=== PATIENT | female | born 2000 | race Caucasian/White ===

== ENCOUNTER 2023-11-12 09:32 | Emergency (ER) | payer OTHER, SELFPAY ==
[2023-11-12 09:32] VITALS: BMI 19.8
[2023-11-12 09:40] VITALS: BP 114/73
[2023-11-12 10:22] LABS: Urine Albumin Trace (Neg - Trace); Urine Bilirubin Negative (Negative); Urine Character Clear (Clear); Urine Color Yellow; Urine Glucose Negative (Negative); Urine Ketone Negative (Negative); Urine Leukocyte Trace (Negative); Urine Nitrite Negative (Negative); Urine Occult Blood 4+ (Negative); Urine Urobilinogen Negative (Neg - 1+)
[2023-11-12 10:29] LABS: Urine Mucus Moderate
[2023-11-12 10:31] LABS: Urine Bacteria Moderate (Negative); Urine Red Blood Cell 16-20 /HPF (0-2); Urine White Cell 0-2 /HPF (0-5)
[2023-11-12 10:37] LABS: HCG, Urine Qualitative Screen Negative
--- NOTE | 2023-11-12 10:52 | ED.GENMED ---
History of Present Illness
General
Chief Complaint: Abdominal Symptoms
Source: patient
Exam Limitations: none
Time Seen by Provider: 11/12/23 09:52
Nursing documentation reviewed up to this point in time: agreed with
Travel History
Have you had any contact with someone who has COVID-19?: No
Do you have any symptoms of coronavirus? Fever > 100 degrees, chills, cough, shortness of breath, sore throat, loss of taste or smell, muscle aches, or headache?: No
History of Present Illness
History of Present Illness:
She is 23-year-old female presents to the ER for evaluation. She reports about an hour ago she was driving to recommend sudden onset of right lower quadrant pain. She was very nauseous with this. She did feel some pain in her back. Now she still
feels nauseous. She denies any history of prior symptoms. Her period ended last week. She denies any new frequency urgency or dysuria. Denies any recent fever or chills. No prior . Denies any history STD. She is sexually active. She
is on oral control.
Patient still complains of mild right side abdominal discomfort. She does feel nauseous.
Past History
Past History
ED Past Medical History: None
ED Past Surgical History: Tonsilectomy
Social History
Personal: Single
Living: with family
Review of Systems
Review of Systems
Allergies reviewed?: Yes
All Other Systems: ROS reviewed and negative except as documented in HPI and ROS
Constitutional: Reports no symptoms; Denies fever, fatigue or chills
Respiratory: Reports no symptoms
Cardiac: Reports no symptoms
ABD/GI: Reports abdominal pain and nausea; Denies vomiting, diarrhea or constipated
: Denies dysuria, flank pain, incontinence, urgency or discharge
Musculoskeletal: Reports back pain (had some mild right sided back pain now resolved )
Skin: Reports no symptoms
Neurological: Reports no symptoms
Psychiatric: Reports no symptoms
Phy Exam
General Physical Exam
General Presentation: no apparent distress
General age: appears stated age
General Skin: warm and dry
General Habitus: normal
General Mental: alert
Gastrointestinal Exam
Gastrointestinal Exam: soft and other (mild right sided mid abdominal tenderness , no guarding )
Neurological Exam
Neurological Exam: alert and oriented x3
Musculoskeletal Exam
Musculoskeletal Exam: full ROM
Skin Exam
Skin Exam: normal color and warm/dry
Psychiatric Exam
Psychiatric Exam: normal mood/affect
Course
Orders/Labs/Results
Orders:
Orders
11/12/23 09:46
Test Result ONCE
11/12/23 10:03
Urinalysis Reflex To Culture Urgent
Date Specimen was Collected: 11/12/23
Time Specimen was Collected: 09:46
Urine Microscopic Reflex Cult Urgent
Urine,Hcg qualitative screen [HCG, Urine Qualitative Screen] Urgent
Date Specimen was Collected: 11/12/23
Time Specimen was Collected: 09:46
Urine Culture Urgent
BARBARA Source: U
Specimen Description:
Date Specimen was Collected: 11/12/23
Time Specimen was Collected: 09:46
11/12/23 10:48
US Pelvis W Transvag Combined Urgent
Reason For Exam: rlq pain
11/12/23 10:49
Iohexol [Omnipaque] See Protocol PO NOW STA
US Abdomen - Appendix Only Urgent
Comment:
Reason For Exam: rlq pain
11/12/23 10:50
CT Abd/pel W Iv And Oral Contr Urgent
Comment:
Reason For Exam: rlq pain
Complete Blood Count/With Diff Urgent
Comprehensive Metabolic Panel Urgent
11/12/23 10:51
0.9% Sodium Chloride 1000 ml [Nss] 1,000 ml IV BOLUS
Ondansetron Injectable [Zofran] 4 mg IV NOW STA
Abnormal Lab Results
11/12/23 11/12/23
10:03 10:50
MCH 32.6 H pg
(27.0-31.0)
Total Protein 8.5 H g/dl
(6.3-8.2)
Ur Occult Blood Reflex 4+ A
(Negative)
Leukocyte Esterase Rfl Trace A
(Negative)
Urine RBC 16-20 A /HPF
(0-2)
Urine Bacteria (Reflex) Moderate A
(Negative)
11/12/23 10:50
11/12/23 10:50
Vital Signs
Initial and Last Documented VS:
Initial Vital Signs
Temp Pulse Resp BP Pulse Ox
98.2 F 99 16 114/73 98
11/12/23 09:40 11/12/23 09:40 11/12/23 09:40 11/12/23 09:40 11/12/23 09:40
Last Documented Vital Signs
Temp Pulse Resp BP Pulse Ox
98.2 F 99 16 113/74 98
11/12/23 09:40 11/12/23 09:40 11/12/23 09:40 11/12/23 15:15 11/12/23 09:40
MDM/Problems Addressed
Differential Diagnosis Includes:
not limited to: ovarian cyst ovarian, ovarian torsion, appendicitis, UTI, renal colic
MDM/Problems Addressed:
Patient is a 23-year-old female who presented to the ER with episode of right sided abdominal pain this morning while driving with nausea. She questionable felt small pain in her back. She presents awake alert no acute distress feeling much
better. She presents with stable vital signs denies any recent fevers denies any vomiting. Her labs unremarkable. Her last menstrual period ended last week. She does have small mild blood in her urine. No evidence of infection. No UTI
symptoms. She is sexually active. No prior history .
Patient is in no acute distress very minimally tender to the right of the umbilical region. Ultrasound performed does show ovarian cyst on the right ultrasound does not visualize the appendix. nml blood flow. CAT scan also does not visualize the
appendix however there are no additional inflammatory changes in the right lower quadrant. There is again seen a right adnexal cyst, constipation and uncomplicated terminal ileitis. I did review these findings on CAT scan with patient and family
discussed close outpatient follow-up for further CAT scan findings with inflammation of the terminal ileum and also discussed repeat urinalysis by family doctor and gynecology appointment for reevaluation of ovarian cyst.
*Radiology
Radiology exam reviewed: radiology read reviewed
*Pulse Oximetry
Patient hypoxic: no
*Critical Care Note
Total Time (30-74mins, 75-104mins- exclusive of procedures): Not Applicable
ED Attending Note
-
Portions of this chart may have been created with voice recognition software.� Occasional wrong word or��sound alike� substitutions may have occurred due to the inherent limitations of voice recognition software.
Discharge Plan
Departure
Patient Disposition: Home (Routine Discharge)
Date of Disposition: 11/12/23
Time of Disposition: 15:18
Patient with high blood pressure during this ER visit?: No
Condition: Fair
Covid-19: Not Applicable
Discharge Problem:
Abdominal pain
Instructions: Abdominal Pain
Prescriptions:
No Action
diclofenac sodium 75 MG tablet,delayed release (DR/EC)
75 mg PO BID Qty: 14 0RF
Referrals:
Birdie Barclay MD [Active] -
NONE,* [Family Provider] -
Activity Restrictions/Additional Instructions:
As discussed you do have a right ovarian cyst. 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 Also as discussed please follow-up with your family doctor for further evaluation of your CAT scan included findings of
inflammation in your terminal ileum. You may need repeat imaging. Follow-up again with your family doctor for repeat urinalysis as she did have small amount of blood in your urine. Return to the ER for any worsening of symptoms
Interventions
Interventions:
*Risk Screen - Suicide Last Done: 11/12/23 10:05
*General Assessment Last Done: 11/12/23 10:05
*Neglect/Abuse Screening Last Done: 11/12/23 10:05
ED- Fall Risk Assessment Last Done: 11/12/23 10:05
*ED COVID-19 Vaccine History Last Done: 11/12/23 09:40
IE-Dexncq-Ttepwmryyw Assessment Last Done: 11/12/23 10:05
[2023-11-12] MEDS: NSS 1000 IV (10:53)
[2023-11-12 10:59] LABS: % Basophils 0.6 % (0-2); % Eosinophils 0.7 % (0-6); % Immature Granulocytes 0.3 % (0-0.5); % Lymphocytes 25.4 % (20.5-51.1); % Monocytes 3.9 % (1.7-9.3); % Neutrophils 69.1 % (42.2-75.2); Absolute Eosinophils 0.1 10^3/uL (0-0.7); Absolute Lymphocytes 1.8 10^3/uL (1.2-3.4); Absolute Monocytes 0.3 10^3/uL (0.1-0.6); Hematocrit 40.3 % (37.0-47.0); Hemoglobin 14.1 g/dL (12.0-16.0); Mean Corpuscular Hgb 32.6 pg (27.0-31.0); Mean Corpuscular Volume 93.1 fL (81.0-99.0); Mean Platelet Volume 10.2 fL (7.4-10.4); Nucleated Red Blood Cells % 0 %; Platelet Count 284 10^3/uL (130-400); Red Blood Cell Count 4.33 10^6/uL (4.20-5.40); Red Cell Dist. Width 11.9 % (11.5-14.5); White Blood Cell Count 7.2 10^3/uL (4.8-10.8)
[2023-11-12] MEDS: OMNIPAQUE 50 ML PO (11:17)
[2023-11-12] MEDS: ZOFRAN 4 MG IV (11:18)
[2023-11-12 11:24] LABS: ALT (SGPT) 16 U/L (0-35); AST (SGOT) 23 U/L (14-36); Albumin 4.9 g/dl (3.5-5.0); Alkaline Phosphatase 61 U/L (38-126); Blood Urea Nitrogen 11 mg/dl (7-17); Calcium 9.4 mg/dl (8.4-10.2); Carbon Dioxide 25 mmol/L (22-30); Chloride 104 mmol/L (98-107); Estimated Creatinine Clearance > 125 ml/min; Glucose 93 mg/dl (70-99); Potassium 3.8 mmol/L (3.5-5.1); Sodium 136 mmol/L (135-145); Total Bilirubin 0.7 mg/dl (0.2-1.3); Total Protein 8.5 g/dl (6.3-8.2); eGFR > 60.00
[2023-11-12 15:15] VITALS: BP 113/74
== END 2023-11-12 15:24 | disposition home or self-care (01) ==
LOC: EMR 09:32
PROVIDERS: Nurse Practitioner; EMERGENCY PHYSICIAN Emergency Medicine
DX: R10.9 Unspecified abdominal pain (principal); R11.0 Nausea; R31.9 Hematuria, unspecified; N83.201 Unspecified ovarian cyst, right side; K59.00 Constipation, unspecified; K50.00 Crohn's disease of small intestine without complications
CPT/HCPCS: 99285; 96374; 96361; 74177; 76705; 76830; 76856; 80053; 81003; 81015; 81025; 85025; 87086; Q9967

== ENCOUNTER 2025-05-16 15:07 | Emergency (ER) | payer OTHER, SELFPAY ==
[2025-05-16 15:12] VITALS: BP 114/81
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
== END 2025-05-16 19:13 | disposition home or self-care (01) ==
LOC: EMR 15:07
PROVIDERS: EMERGENCY PHYSICIAN Emergency Medicine
DX: S06.0XAA Concussion with loss of consciousness status unknown, initial encounter (principal); S00.12XA Contusion of left eyelid and periocular area, initial encounter; Y04.0XXA Assault by unarmed brawl or fight, initial encounter
CPT/HCPCS: 99282